=== PATIENT | male | born 2005 | race Hispanic/Latino ===

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

== ENCOUNTER 2024-07-17 19:06 | Emergency (ER) | payer SELFPAY ==
[2024-07-17] MEDS ORDERED: Bacitracin 1 PK ONE (19:35)
[2024-07-17] MEDS ORDERED: Lidocaine 1% PF 5 ML VIAL ONE (19:35)
== END 2024-07-17 20:35 | disposition home or self-care (01) ==
LOC: BURERS 19:06
DX: S61.316A Laceration without foreign body of right little finger with damage to nail, initial encounter (principal); F17.200 Nicotine dependence, unspecified, uncomplicated; W26.8XXA Contact with other sharp object(s), not elsewhere classified, initial encounter
CPT/HCPCS: 12002; 99282